=== PATIENT | female | born 1980 | race African-American/Black ===

== ENCOUNTER 2016-09-06 04:17 | Emergency (ER) | payer BC ==
[~2016-09-06] VITALS: Ht 165.1 cm; Wt 68.0 kg
[2016-09-06 04:17] VITALS: BP 115/65
--- NOTE | 2016-09-06 04:20 | NUR ---
TO BED 08 A 35 YO FEMALE BIBSELF WITH C/O POSSIBLE ESOPHAGEAL FOREIGN BODY S/P SWALLOWING PILL. PER PATIENT, SHE HAD SOB AFTER TAKING THE PILL AND FEEL THAT ITS "LODGE IN THE ESOPHAGUS." PATIENT REPORTED ALSO FEELING ANXIOUS. VSS. NONDIAPHORETIC. BREATHING EVEN AND UNLABORED. GOWNED. INITIATED COMFORT MEASURES. AWAITING FOR ER MD CHAVEZ.
--- NOTE | 2016-09-06 04:40 | NUR ---
DR GAVIN AT BEDSIDE FOR EVAL.
[2016-09-06] MEDS ORDERED: METOCLOPRAMIDE HCL 10 MG/2 ML VIAL ONE (04:49)
[2016-09-06] MEDS ORDERED: WATER FOR INJECTION,STERILE 10 ML ONE (04:50)
[2016-09-06] MEDS ORDERED: GLUCAGON,HUMAN RECOMBINANT 1 MG/VIAL VIAL ONE (04:50)
[2016-09-06] MEDS ORDERED: GLUCAGON,HUMAN RECOMBINANT 1 MG/VIAL VIAL IV ONE (05:00)
[2016-09-06] MEDS ORDERED: METOCLOPRAMIDE HCL 10 MG/2 ML VIAL IV ONE (05:00)
--- NOTE | 2016-09-06 05:08 | NUR ---
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
--- NOTE | 2016-09-06 05:17 | NUR ---
Per patient's request and after notifying Dr Berrios, IV removed. Catheter intact and site benign. Pressure and 4x4 applied to site. No bleeding noted.
--- NOTE | 2016-09-06 05:42 | NUR ---
Patient left from ER, seen walking with steady gait. Dr Berrios notified.
== END 2016-09-06 05:47 | disposition left against medical advice (07) ==
LOC: ER 04:20
DX: R09.89 Other specified symptoms and signs involving the circulatory and respiratory systems (principal)
CPT/HCPCS: 70360; 71020; 96374; 96375; 99284; A4606; J1610; J2765; Z7610